=== PATIENT | male | born 1995 | race African-American/Black ===

== ENCOUNTER 2023-10-24 03:46 | Emergency (ER) | payer SELFPAY ==
[~2023-10-24] VITALS: Ht 180.3 cm; Wt 83.7 kg
[2023-10-24 03:55] VITALS: BP 147/83; PULSE 123; RESP 18; TEMP 102.9; O2SAT 100
== END 2023-10-24 10:01 | disposition left against medical advice (07) ==
LOC: ER 03:46
DX: R05.9 Cough, unspecified (principal); Z53.21 Procedure and treatment not carried out due to patient leaving prior to being seen by health care provider
CPT/HCPCS: 93005; 99281